=== PATIENT | female | born 1965 | race Two or more races ===

== ENCOUNTER 2019-03-17 10:05 | Emergency (ER) | payer OTHER ==
[~2019-03-17] VITALS: Ht 160 cm; Wt 59.0 kg
[2019-03-17] MEDS ORDERED: DICY20TA PO (15:43)
== END 2019-03-17 16:19 | disposition home or self-care (01) ==
LOC: ER 10:05
DX: K29.70 Gastritis, unspecified, without bleeding (principal)